=== PATIENT | male | born 1985 ===

== ENCOUNTER 2017-05-25 18:58 | Emergency (ER) | payer SELFPAY ==
[2017-05-25 19:12] VITALS: TEMP 98.9
[2017-05-25] MEDS ORDERED: DiphenhydrAMINE 50 mg/ml Inj IM STA (19:22)
[2017-05-25] MEDS ORDERED: DiphenhydrAMINE 50 mg/ml Inj ONE (19:27)
--- NOTE | 2017-05-25 19:29 | C.PDOC ---
History Of Present Illness 31 y/o female presents to ER with c/o of facial swelling and rash to bilateral arms since yesterday. Pt reported cutting some leaves late yesterday containing josephine. Pt took 1 tablet of benadryl this morning without relief. Pt denies SOB, chest tightness, lip or tongue swelling, fever Time Seen by Provider: 05/25/17 19:14 Chief Complaint (Nursing): Allergic Reaction History Per: Patient, Family Onset/Duration Of Symptoms: Gradual (x 2 days) Quality Of Symptoms: Itching, Swollen Severity: Moderate Recent travel outside of the [place]: No Past Medical History Vital Signs: Last Vital Signs Temp 98.9 F 05/25/17 19:08 Pulse 88 05/25/17 19:56 Resp 18 05/25/17 19:56 BP 142/89 05/25/17 19:56 Pulse Ox 99 05/25/17 19:56 - Medical History PMH: No Chronic Diseases Family History: States: Unknown Family Hx - Social History Hx Alcohol Use: Yes Hx Substance Use: No - Immunization History Hx Tetanus Toxoid Vaccination: No Hx Influenza Vaccination: No Hx Pneumococcal Vaccination: No Review Of Systems Constitutional: Negative for: Fever ENT: Negative for: Mouth Swelling, Throat Swelling Respiratory: Negative for: Shortness of Breath, Wheezing Skin: Positive for: Rash (face, forearms) Physical Exam - Physical Exam Appears: Well, No Acute Distress Skin: Rash (erythematous macular papular to b/l anterior forearms, and diffuse erythema to face with periorbital swelling > left) Eye(s): bilateral: PERRL, EOMI Oral Mucosa: Moist, No Drooling Tongue: Normal Appearing, No Swelling Lips: Normal Appearing, No Swelling Throat: Normal, No Erythema, No Drooling Cardiovascular: Rhythm Regular Respiratory: Normal Breath Sounds, No Wheezing Neurological/Psych: Oriented x3 ED Course And Treatment O2 Sat by Pulse Oximetry: 98 Pulse Ox Interpretation: Normal Progress Note: Benadryl IM, prednisone and pepcid PO ordered. Pt remains stable in ER in NAD. Plan d/w pt who does agree and he understand return precautions given Disposition Counseled Patient/Family Regarding: Diagnosis, Need For Followup, Rx Given - Disposition Referrals: [facility] [Outside] Disposition: HOME/ ROUTINE Disposition Time: 19:36 Condition: STABLE Additional Instructions: Dolores las medicinas Sigue en clinica Regresa si peor Prescriptions: DiphenhydrAMINE [Benadryl] 50 mg PO Q6H #20 cap Hydrocortisone 1% Cream [Cortizone 1% Cream] 1 appl TP BID #1 tube predniSONE [Prednisone] 40 mg PO DAILY #8 tab Instructions: Poison Josephine (ED) Print Language: SCOTTISH - Clinical Impression Clinical Impression: Allergic dermatitis due to poison josephine
[2017-05-25 19:56] VITALS: BP 142/89; PULSE 88; RESP 18
[2017-05-25 21:45] VITALS: O2SAT 98
== END 2017-05-25 19:55 | disposition home or self-care (01) ==
LOC: C.ER 18:58
DX: L23.7 Allergic contact dermatitis due to plants, except food (principal)
CPT/HCPCS: 96372; 99283; J1200